=== PATIENT | male | born 1940 | race Caucasian/White ===

== ENCOUNTER 2024-03-08 17:15 | Emergency (ER) | payer OTHER, BC ==
[2024-03-08 17:42] VITALS: BP 140/103; PULSE 65; RESP 20; TEMP 97.9; BMI 31.3
[2024-03-08] MEDS ORDERED: ACETAMINOPHEN 325 MG TABLET (FP) PO ONE (18:15)
[2024-03-08] MEDS ORDERED: LIDOCAINE 5% TOPICAL PATCH TP ONE ×3 (18:15→18:28)
[2024-03-08] MEDS ORDERED: LIDOCAINE 5% TOPICAL PATCH ONE (18:28)
[2024-03-08] MEDS ORDERED: ACETAMINOPHEN 325 MG TABLET (FP) ONE (18:30)
[2024-03-08] MEDS ORDERED: LIDOCAINE PATCH REMOVAL MC SCH ×3 (22:00)
== END 2024-03-08 18:40 | disposition home or self-care (01) ==
LOC: FER 17:15
DX: M54.2 Cervicalgia (principal)
CPT/HCPCS: 99282-25